=== PATIENT | male | born 2000 | race Caucasian/White ===

== ENCOUNTER 2019-09-17 18:37 | Emergency (ER) | payer SELFPAY ==
[~2019-09-17] VITALS: Ht 170.2 cm; Wt 56.7 kg
[2019-09-17 18:40] VITALS: BP_SYST 122
--- NOTE | 2019-09-17 18:40 | NUR ---
Patient to ER bed 4 to gown for evaluation. Side rails up.
--- NOTE | 2019-09-17 18:50 | NUR ---
Pt bib in police custody c/o SOB. Pt h/o Asthma. Breathing tx given en route to ED. Pt reports ease in effort after tx.
[2019-09-17] MEDS ORDERED: LEVALBUTEROL HCL 0.63 MG/3 ML VIAL.NEB INH ONE (19:00)
[2019-09-17] MEDS ORDERED: PREDNISONE 20 MG TABLET PO ONE (19:00)
--- NOTE | 2019-09-17 19:00 | NUR ---
ER at bedside examining patient.
--- NOTE | 2019-09-17 19:05 | NUR ---
RT at bedside for tx.
--- NOTE | 2019-09-17 19:10 | NUR ---
Report received from kevin RN and pt care endorsed. Pt resting in bed with eyes open, no signs of acute distress or discomfort noted. PD at bedside. Will cont to monitor pt.
[2019-09-17 20:00] VITALS: BP_SYST 122
--- NOTE | 2019-09-17 20:00 | NUR ---
Patient given written and verbal discharge instructions and verbalizes understanding. ER MD Dr. Marsh discussed with patient the results and treatment provided. Patient in stable condition. ID arm band removed. Rx of albuterol and prednisone given. Patient educated on pain management and to follow up with PMD. Pain Scale 0/10. Opportunity for questions provided and answered. Medication side effect fact sheet provided. Accompanied by PD out of the ER.
== END 2019-09-17 20:00 ==
LOC: SED 18:37
DX: J45.901 Unspecified asthma with (acute) exacerbation (principal)
CPT/HCPCS: 94640; 99283; J7512; J7614